=== PATIENT | male | born 1990 | race African-American/Black ===

== ENCOUNTER 2018-10-05 15:07 | Emergency (ER) | payer SELFPAY ==
[~2018-10-05] VITALS: Ht 175.3 cm; Wt 74.8 kg
[2018-10-05 15:19] VITALS: BP 131/75
== END 2018-10-05 16:31 | disposition home or self-care (01) ==
LOC: ED 16:15
DX: M79.632 Pain in left forearm (principal)
CPT/HCPCS: 99284

== ENCOUNTER 2018-12-16 13:06 | Emergency (ER) | payer MEDICAID ==
[~2018-12-16] VITALS: Ht 177.8 cm; Wt 76.6 kg
[2018-12-16] MEDS ORDERED: METHOCARBAMOL 750 MG TABLET ONE (13:47)
[2018-12-16] MEDS ORDERED: KETOROLAC 30 MG/1 ML ONE (13:48)
--- NOTE | 2018-12-16 13:54 | NUR ---
PT MEDICATED ORDERED FOR 06/10 PAIN
[2018-12-16] MEDS ORDERED: KETOROLAC 30 MG/1 ML IM ONE (14:00)
[2018-12-16] MEDS ORDERED: METHOCARBAMOL 750 MG TABLET PO ONE (14:00)
[2018-12-16 14:09] VITALS: BP 117/67
--- NOTE | 2018-12-16 14:09 | NUR ---
NO ACUTE DISTRESS NOTED. NO SIG CHANGE IN PAIN LEVEL AT THIS TIME. NO IV TO DC. REVIEWED DC INSTRUCTIONS WITH PT, UNDERSTANDING VERBALIZED. PT LEFT AMB, GAIT STEADY.
== END 2018-12-16 14:11 | disposition home or self-care (01) ==
LOC: ED 13:56
DX: S16.1XXA Strain of muscle, fascia and tendon at neck level, initial encounter (principal); M62.838 Other muscle spasm; V89.2XXA Person injured in unspecified motor-vehicle accident, traffic, initial encounter; Y93.89 Activity, other specified; Y92.410 Unspecified street and highway as the place of occurrence of the external cause; Y99.8 Other external cause status
CPT/HCPCS: 96372; 99283; J1885

== ENCOUNTER → 2019-01-28 | Outpatient (CLI) | payer MEDICAID | END | disposition home or self-care (01) | LOC: RAD 18:54 | PROVIDERS: ATTEND Chiropractor | DX: S42.023A Displaced fracture of shaft of unspecified clavicle, initial encounter for closed fracture (principal); X58.XXXA Exposure to other specified factors, initial encounter; Y93.89 Activity, other specified; Y92.89 Other specified places as the place of occurrence of the external cause; Y99.8 Other external cause status ==